=== PATIENT | male | born 1965 | race Hispanic/Latino ===

== ENCOUNTER 2017-12-21 15:06 | Emergency (ER) | payer SELFPAY ==
[2017-12-21] MEDS ORDERED: ACETAMINOPHEN EXTRA STRENGTH 500 MG TABLET ONE (15:16)
[2017-12-21] MEDS ORDERED: IBUPROFEN 600 MG TABLET ONE (16:21)
== END 2017-12-21 16:39 | disposition home or self-care (01) ==
LOC: EDH 15:06
DX: J10.1 Influenza due to other identified influenza virus with other respiratory manifestations (principal); Z87.891 Personal history of nicotine dependence
CPT/HCPCS: 71046; 87804